=== PATIENT | female | born 1950 | race Caucasian/White ===

== ENCOUNTER 2017-11-05 08:15 | Inpatient (IN) | payer OTHER ==
[2017-10-30 11:07] LABS: PLATELET COUNT 232 10^3/uL (150-400)
--- NOTE | 2017-11-05 06:38 | PDHPUP ---
History & Physical Update H&P update statement: This history and physical update is based on an assessment of the patient which was completed after admission or registration (within 24 hours), but prior to the surgery/procedure. H&P update: H&P reviewed & patient examined, no change in patient's condition since H&P completed
[2017-11-05] MEDS ORDERED: LIDOCAINE 1% 2 ML INJ ID PRN (09:10)
[2017-11-05] MEDS ORDERED: LR 1,000 ML IV ONE (09:10)
[2017-11-05] MEDS ORDERED: GABAPENTIN 300 MG CAP PO ONE (09:10)
[2017-11-05] MEDS ORDERED: ceFAZolin 2 GM/DEXTROSE 100 ML IV ONE (09:10)
[2017-11-05] MEDS ORDERED: ACETAMINOPHEN 500 MG TAB PO ONE (09:10)
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
[2017-11-05] MEDS ORDERED: CHLORHEXIDINE GLUC HIBICLENS 118 ML BTL TP ONE (10:00)
[2017-11-05] MEDS ORDERED: EPINEPHrine 1 MG/ML INJ ONE (10:00)
[2017-11-05] MEDS ORDERED: BUPIVACAINE 0.25% 30 ML SDV ONE (10:00)
[2017-11-05] MEDS ORDERED: BACITRACIN 50,000 UNITS/10 ML SYR IRR ONE ×3 (10:01→13:44)
[2017-11-05] MEDS ORDERED: THROMBIN (BOVINE) 20,000 UNIT VIAL TP ONE (10:02)
[2017-11-05] MEDS ORDERED: MIDAZOLAM 2 MG/2 ML VIAL IVP ONE (10:34)
[2017-11-05] MEDS ORDERED: FUROSEMIDE 20 MG TAB PO PRN (10:39)
[2017-11-05] MEDS ORDERED: FLUTICASONE NASAL 120 SPRAYS/16 GM MDI NS PRN (10:39)
[2017-11-05] MEDS ORDERED: PROPOFOL 200 MG/20 ML VIAL ONE (10:40)
[2017-11-05] MEDS ORDERED: PROPOFOL/EMULSION 500 MG/50 ML BOTTLE IV ONE ×2 (10:40→13:11)
[2017-11-05] MEDS ORDERED: fentaNYL 100 MCG/2 ML INJ ONE ×3 (10:40→15:06)
[2017-11-05] MEDS ORDERED: diphenhydrAMINE 25 MG CAP PO PRN (10:47)
[2017-11-05] MEDS ORDERED: HYDROmorphONE/DILAUDID 1 MG/ML INJ IVP PRN (10:47)
[2017-11-05] MEDS ORDERED: ONDANSETRON 4 MG/2 ML VIAL IVP PRN ×2 (10:47→15:09)
[2017-11-05] MEDS ORDERED: NALOXONE HCL 0.4 MG/ML INJ IVP PRN ×2 (10:47→15:09)
[2017-11-05] MEDS ORDERED: LACTULOSE 20 GM/30 ML UDCUP PO PRN (10:47)
[2017-11-05] MEDS ORDERED: POLYETHYLENE GLYCOL 3350 17 GM PKT PO PRN (10:47)
[2017-11-05] MEDS ORDERED: BISACODYL 10 MG SUPP PR PRN (10:47)
[2017-11-05] MEDS ORDERED: ONDANSETRON DISINTEGRATING 4 MG TAB PO PRN (10:47)
[2017-11-05] MEDS ORDERED: morphINE PCA 30 MG/30 ML PCA IV PRN (10:47)
[2017-11-05] MEDS ORDERED: MAGNESIUM HYDROXIDE 30 ML UDCUP PO PRN (10:47)
[2017-11-05] MEDS ORDERED: NS 1,000 ML IV SCH (11:00)
[2017-11-05] MEDS ORDERED: ONDANSETRON 4 MG/2 ML VIAL ONE (11:28)
[2017-11-05] MEDS ORDERED: DEXAMETHASONE 4 MG/ML VIAL ONE (11:28)
[2017-11-05] MEDS ORDERED: ROCURONIUM 50 MG/5 ML VIAL ONE (13:11)
[2017-11-05] MEDS ORDERED: LIDOCAINE 2% 100 MG/5 ML SYR ONE (13:11)
[2017-11-05] MEDS ORDERED: ceFAZolin 2 GM/DEXTROSE 100 ML IV SCH (14:00)
[2017-11-05] MEDS ORDERED: fentaNYL 100 MCG/2 ML INJ IVP PRN (15:09)
[2017-11-05] MEDS ORDERED: LR 500 ML IV PRN (15:09)
[2017-11-05] MEDS ORDERED: PHENYLEPHRINE HCL 100 MCG/ML SYR IVP PRN (15:09)
[2017-11-05] MEDS ORDERED: DIAZEPAM 5 MG/ML 1 ML SYR IVP PRN (15:09)
[2017-11-05] MEDS ORDERED: HYDROmorphONE/DILAUDID 2 MG/ML INJ ONE (15:25)
--- NOTE | 2017-11-05 15:31 | PDMN ---
Medical Necessity Medical necessity: MCG: S820 lumbar fusion INPT only- TLIF
--- NOTE | 2017-11-05 15:55 | POSTOPPROG ---
Post Op Note Date of Operation: 11/05/17 Surgeon: Zafar Sanders Signal Worker: Beata Anesthesiologist: Buddy Anesthesia: GET(General Endotracheal), Local (Specify) Pre-op Diagnosis: Lumbar stenosis, ASD Post-op Diagnosis: S/P TLIF at L2/3 and L3/4 with tie in hardware to S1 Indication: lumbar stenosis Procedure: as above Inf/Abcess present in the surg proc area at time of surgery?: No Depth: Deep Incisional (Fascial) EBL: 100-500 Total fluids administered: see anesthesia record Complications: none Drains: Darren Nelson
--- NOTE | 2017-11-05 15:57 | SOAPPROG ---
SOAP Progress Note Assessment/Plan: Post Op Visit: S: Awake and alert. NAD. Pt with expected lower back pain O: AFVSS/PERRLA/EOMI no droop CN 2-12 grossly intact +lt touch 5/5 BUE/BLE = CDI A/P: 67 yo female that is s/p TLIF at L2/3 and L3/4 with tie in fusion to S1 -orders in place -call with any questions or concerns -pt seen by Dr Sanders as well -admit to floor -brace when out of bed 11/05/17 15:55 Objective: Vital Signs Temp Pulse Resp BP Pulse Ox 37.0 C 63 16 126/72 H 94 11/05/17 09:24 11/05/17 10:34 11/05/17 10:34 11/05/17 10:34 11/05/17 10:34 Laboratory Results 10/30/17 10:37 10/30/17 10:37 ICD10 Worksheet Patient Problems: Problems Problem Status Onset Arthrodesis status Acute Lumbar radicular pain Acute Lumbar stenosis Acute - ICD10 Problem Qualifiers (1) Lumbar stenosis (2) Lumbar radicular pain (3) Arthrodesis status
[2017-11-05] MEDS ORDERED: HYDROmorphONE/DILAUDID 1 MG/ML INJ ONE ×2 (16:24→17:18)
[2017-11-05] MEDS: HYDROmorphONE/DILAUDID 1 MG/ML INJ IVP PRN ×3 (16:25→17:18)
--- NOTE | 2017-11-05 16:43 | POSTANESTH ---
Post Anesthetic Evaluation Cardiovascular Status: Normal, Stable, Similar to Pre-Op Cond Respiratory Status: Normal, Stable, Similar to Pre-op Cond. Level of Consciousness/Mental Status: Can Participate in Eval, Alert and Oriented Pain Control: Adequate, Prn Tx Ordered Nausea/Vomiting Control: Adequate, Prn Tx Ordered Complications Possibly Related to Anesthesia: None Noted
[2017-11-05] MEDS ORDERED: DIAZEPAM 5 MG/ML 1 ML SYR ONE (16:47)
--- NOTE | 2017-11-05 17:21 | GOP ---
[f rep st] OPERATIVE REPORT DATE OF OPERATION: 11/05/2017 SURGEON: Gris Sanders MD SAFETY DIRECTOR: Carl Cota PA-C. PREOPERATIVE DIAGNOSIS: Adjacent segment disease with spinal stenosis and disk degenerative change a t L2-3, L3-4, prior lumbar fusion L4, L5, S1, spinal stenosis, bilateral lumbosacral radiculopathy, l eft more so than right, chronic pain syndrome. POSTOPERATIVE DIAGNOSIS: Adjacent segment disease with spinal stenosis and disk degenerative change at L2-3, L3-4, prior lumbar fusion L4, L5, S1, spinal stenosis, bilateral lumbosacral radiculopathy, left more so than right, chronic pain syndrome. PROCEDURE PERFORMED: Removal of spinal hardware across a single interspace at L4 (34861), posterior- lateral and intervertebral arthrodesis at L2-3, L3-4 ([id number], 76366), posterior segmental instrumentat ion, L2, L3, L4 (66533), same incision bone graft harvest, microscope, spinal stereotaxy, placement o f biomechanical intervertebral device at L2-3, L3-4. FINDINGS: ESTIMATED BLOOD LOSS: 500 cc. INDICATIONS: The patient is a 67-year-old who struggles looked chronic pain and had increasingly sev ere radiating pain in the left and right legs, left more so than right, and she failed conservative m anagement. MRI demonstrated development of adjacent segment stenosis above her prior fusion. She ap peared to have solid bony union without complication at L4-5, 5-1, but she had developed worsening sp inal stenosis and disk degenerative change, as well as a degenerative scoliotic curve in the spine. She is concave on the right-hand side, but her symptoms are worse on the left and adjacent instrument ation and fusion. She knew there were risks, including risks of continued chronic pain, nerve injury , spinal fluid, pseudarthrosis, possible need for more spine surgery, failure to alleviate symptoms, screw and hardware malposition and malfunction, major vascular injury, and she wanted to proceed desp ite these risks. DESCRIPTION OF PROCEDURE: The patient was taken to the operating room, placed in supine position. G eneral anesthesia was begun. She was flipped prone onto the Darren table. Care was taken to pad al l points of contact. Her back was sterilely prepped and draped in the usual fashion. A localizing x -ray was taken. We opened most of her previous midline incision, sparing about the last inch of the incision itself a nd extended this rostrally in the midline to the spinous process of L1. The subcutaneous tissue was dissected using Bovie cautery down through the subcutaneous tissue and the fascia. A subperiosteal d issection was made down the lamina of L2, L3, L4. The hardware at L4 and L5 were exposed. We removed the cap screws at L4. We then cut the rods below the L4 [place] on each side and then removed a small piece of liseth in the [place] and then removed both p edicle screws at L4. We then prepared the rostral extension of the liseth coming off the L5 screw for a cceptance of an in-line connector. After doing so, we denuded and decorticated the facet joint at L2 -3, 3-4 to create our posterior lateral arthrodesis at those level. We attached the [employer] reference frame, performed an O-arm spin, and using frameless Stealth stereot axy, we placed pedicle screws bilaterally at L2 and L3. We then took 80 mm rods and cut them to size , increased the lordosis in the rods and connected these to liseth extensions coming off the L5 screw an d connected these to the L2 and L3 screw. We distracted right more so than left and reduced the dege nerative scoliotic curve on the right hand side quite nicely. We then removed all the soft tissue fr om the bone at L2, L3, and L4. We harvested the L3 and L4 spinous process for autologous grafting pu rposes. We drilled bilateral L3-4 laminectomy and bilateral L2-3 laminectomy to decompress the theca l sac. We preserved the facet joint on the right at L2-3, 3-4. We removed the facet joints on the l eft to allow access to the foramen itself. The patient had a great tendency to bleed and ooze throughout surgery and the blood loss is not due t o uncontrolled bleeding from actual vessels, but her bone simply kept weeping and oozing despite our attempts to stop it. We continued working through the case. We swept the L4 nerve root medially from the patient's left-hand side, removed the L3-4 disk and cart ilaginous endplates completely. We roughen the subchondral bone to create arthrodesis in the intersp ander, and then, we did likewise at 2, 3, sweeping the L3 nerve root medially from the left side and re moved the disk and the cartilaginous endplates. The L2-3 disk space was collapsed and degenerative. I did not think an Elevate cage would fit so I w ent to a 7 mm [place] cage there, but selected a 7 mm x 28 mm expandable Elevate cage for L3-4. We packed bony autograft and BMP into the disk space. 2 mg were placed into the disk spaces themselves and 2 mg for later use posterior laterally. We inserted the cages under fluoroscopic guidance, expan ded the Elevate cage, and I was happy with the positioning of the device. We then decorticated all t he remaining bone bilaterally posterolaterally to create arthrodesis and then laid down bone autograf t and BMP posterolaterally bilaterally. We placed a subfascial drain and closed the incision in mult iple layers using Vicryl sutures. Steri-Strips were applied to the skin. There were no complication s. We did find the patient had severe spinal stenosis predominantly at L3-4 and we did obtain very good and generous decompression bilaterally at L3-4. There with less severe stenosis at L2-3, but still q uite significant. I was happy with my intraoperative findings and I was happy with the quality of ou r decompression on each side. The patient was ultimately reversed from anesthesia, extubated, and transferred to recovery room in s table condition. There were no complications. COMPLICATIONS: None. INSTRUMENTATION USED: [employer] Solera 5.5 mm system. We used a [place] PEEK cage at L2-3. We use d an expandable Elevate 7 x 28 mm cage at L3-4. We used 6.5 mm screws throughout. /[id number]/MODL
[2017-11-05] MEDS ORDERED: HYDROCODONE/APAP 5/325 TAB ONE (17:31)
[2017-11-05] MEDS: HYDROCODONE/APAP 5/325 TAB PO PRN (17:35)
[2017-11-05] MEDS: ACETAMINOPHEN 500 MG TAB PO SCH ×2 (18:02→22:03)
[2017-11-05] MEDS: GABAPENTIN 300 MG CAP PO SCH ×2 (18:03→22:03)
[2017-11-05] MEDS: oxyCODONE IR 15 MG TAB PO SCH ×3 (18:07→22:04)
[2017-11-05] MEDS: METHOCARBAMOL 750 MG TAB PO SCH ×2 (18:33→22:03)
[2017-11-05] MEDS: morphINE SR 15 MG TAB PO SCH ×2 (18:33→22:04)
[2017-11-05] MEDS: ceFAZolin 2 GM/DEXTROSE 100 ML IV SCH (18:42)
[2017-11-05] MEDS ORDERED: FAMOTIDINE 20 MG TAB PO SCH (21:00)
[2017-11-05] MEDS: MIRTAZAPINE 15 MG TAB PO SCH (22:03)
[2017-11-05] MEDS: FAMOTIDINE 20 MG TAB PO SCH (22:03)
[2017-11-05] MEDS: SENNOSIDES/DOCUSATE SODIUM TAB PO SCH (22:03)
[2017-11-06] MEDS: ceFAZolin 2 GM/DEXTROSE 100 ML IV SCH (03:17)
[2017-11-06 05:47] LABS: PLATELET COUNT 188 10^3/uL (150-400)
[2017-11-06] MEDS: oxyCODONE IR 15 MG TAB PO SCH ×4 (05:53→21:16)
[2017-11-06] MEDS: GABAPENTIN 300 MG CAP PO SCH ×4 (05:53→21:15)
[2017-11-06] MEDS: ACETAMINOPHEN 500 MG TAB PO SCH ×4 (06:01→22:22)
--- NOTE | 2017-11-06 08:00 | NEUSURGPN ---
Date of Surgery: 11/05/17 Post Op Day: 1 Assessment/Plan: Assessment: 67 yo female that is s/p TLIF at L2/3 and L3/4 with tie in fusion to S1 POD #1 Plan: -s/p L spine fusion: Pt states some lower back pain, right hip pain. Legs otherwise feel better -PT/OT ordered -brace when out of bed -orders in place -call with any questions or concerns -post op xrays pending -pt seen by Dr Sanders as well -warning signs given -call with any questions or concerns Subjective: Awake and alert. NAD. Pt with expected lower back pain. Legs feel ok except for some right hip pain. No f/c/n/v/d. No mendez/neck/chest/abd or gu complaints. Objective: AFVSS/PERRLA/EOMI no droop CN 2-12 grossly intact +lt touch 5/5 BUE/BLE = CDI Neuro Check Frequency: per routine Urinary Catheter in Place: No Catheter Insertion Date: 11/05/17 - Physician Discussed Patient with : Tommy Patient Seen by : Tommy Neurosurgery Physical Exam - Vitals, I&O, Labs I and O 11/05/17 11/06/17 11/07/17 05:59 05:59 05:59 Intake Total 4258 Output Total 3330 Balance 928 Weight 74.843 kg Intake: Oral (ml) 275 IV Intake (ml) 3000 IV Infused (ml) 983 Ns 1,000 ml @ 75 mls/hr 983 IV CONT DEX Rx#: [id number] Output: Urine (ml) 2450 Catheter 2450 Estimated Blood Loss (ml) 500 BK Drain Output (ml) 380 #1 Left Posterior Back 380 Darren Nelson Vital Signs Temp Pulse Resp BP Pulse Ox 36.8 C 81 16 119/64 95 11/06/17 07:26 11/06/17 07:26 11/06/17 07:26 11/06/17 07:26 11/06/17 07:26 Laboratory Results 11/06/17 05:22 11/06/17 05:22 ICD10 Worksheet Patient Problems: Problems Problem Status Onset Arthrodesis status Acute Lumbar radicular pain Acute Lumbar stenosis Acute - ICD10 Problem Qualifiers (1) Lumbar stenosis (2) Lumbar radicular pain (3) Arthrodesis status
[2017-11-06] MEDS: morphINE SR 15 MG TAB PO SCH ×3 (08:13→21:16)
[2017-11-06] MEDS: SENNOSIDES/DOCUSATE SODIUM TAB PO SCH ×2 (08:13→21:15)
[2017-11-06] MEDS: METHOCARBAMOL 750 MG TAB PO SCH ×3 (08:13→21:16)
[2017-11-06] MEDS: FAMOTIDINE 20 MG TAB PO SCH ×2 (08:14→21:16)
[2017-11-06] MEDS: CHOLECALCIFEROL VIT D3 1,000 UNITS TAB PO SCH (08:14)
--- NOTE | 2017-11-06 14:19 | ASMTCMCOM ---
CM Note CM Note Notes: Pt s/p TLIF and fusion. Pt resides w adult children and has a sister local. OT/PT rec home. Anticipate pt will d/c when medically stable with family support. No CM d/c needs identified at this time. CM available for changes/needs. Date Signed: 11/06/2017 02:19 PM Electronically Signed By:HINA Reese
[2017-11-06] MEDS: MIRTAZAPINE 15 MG TAB PO SCH (21:16)
[2017-11-07] MEDS: GABAPENTIN 300 MG CAP PO SCH ×4 (05:05→20:08)
[2017-11-07] MEDS: oxyCODONE IR 15 MG TAB PO SCH ×4 (05:05→20:08)
[2017-11-07] MEDS: ACETAMINOPHEN 500 MG TAB PO SCH ×3 (08:06→21:02)
[2017-11-07] MEDS: FAMOTIDINE 20 MG TAB PO SCH ×2 (08:11→20:08)
[2017-11-07] MEDS: METHOCARBAMOL 750 MG TAB PO SCH ×3 (08:11→21:03)
[2017-11-07] MEDS: SENNOSIDES/DOCUSATE SODIUM TAB PO SCH ×2 (08:12→20:08)
[2017-11-07] MEDS: morphINE SR 15 MG TAB PO SCH ×3 (08:12→21:03)
[2017-11-07] MEDS: CHOLECALCIFEROL VIT D3 1,000 UNITS TAB PO SCH (08:12)
--- NOTE | 2017-11-07 09:35 | NEUSURGPN ---
Date of Surgery: 11/05/17 Post Op Day: 2 Assessment/Plan: Assessment: 67 yo female that is s/p TLIF at L2/3 and L3/4 with tie in fusion to S1 POD #2 Plan: -s/p L spine fusion: Pt states some lower back pain, right hip pain. Legs otherwise feel better -PT/OT ordered -brace when out of bed -post op xrays show stable hardware placement -call with any questions or concerns Dr Sanders saw patient as well Subjective: back pain Objective: AxO x3 CN 2-12 grossly intact +lt touch BLE 5/5 BUE/BLE CDI Neuro Check Frequency: per routine Urinary Catheter in Place: No Catheter Insertion Date: 11/05/17 - Physician Discussed Patient with : Tommy Patient Seen by : Tommy Neurosurgery Physical Exam - Vitals, I&O, Labs I and O 11/06/17 11/07/17 11/08/17 05:59 05:59 05:59 Intake Total 4258 1586 Output Total 3330 315 Balance 928 1271 Weight 74.843 kg Intake: Oral (ml) 275 1400 IV Intake (ml) 3000 IV Infused (ml) 983 186 Ns 1,000 ml @ 75 mls/hr 983 186 IV CONT DEX Rx#: [id number] Output: Urine (ml) 2450 250 Catheter 2450 Toilet 250 Estimated Blood Loss (ml) 500 BK Drain Output (ml) 380 65 #1 Left Posterior Back 380 65 Darren Nelson Other: Number of Voids Catheter 1 Toilet 1 Vital Signs Temp Pulse Resp BP Pulse Ox 37.0 C 88 18 129/67 H 89 L 11/07/17 07:40 11/07/17 07:40 11/07/17 07:40 11/07/17 07:40 11/07/17 07:40 Laboratory Results 11/06/17 05:22 11/06/17 05:22 ICD10 Worksheet Patient Problems: Problems Problem Status Onset Arthrodesis status Acute Lumbar radicular pain Acute Lumbar stenosis Acute
[2017-11-07] MEDS: HYDROCODONE/APAP 5/325 TAB PO PRN (10:38)
[2017-11-07] MEDS: oxyCODONE IR 5 MG TAB PO PRN ×3 (16:50→23:59)
[2017-11-07] MEDS: MIRTAZAPINE 15 MG TAB PO SCH (20:08)
[2017-11-08] MEDS: ACETAMINOPHEN 500 MG TAB PO SCH ×3 (05:11→21:02)
[2017-11-08] MEDS: GABAPENTIN 300 MG CAP PO SCH ×4 (05:11→21:02)
[2017-11-08] MEDS: oxyCODONE IR 15 MG TAB PO SCH ×4 (05:11→21:02)
[2017-11-08] MEDS: oxyCODONE IR 5 MG TAB PO PRN ×2 (06:37→12:45)
--- NOTE | 2017-11-08 07:35 | SOAPPROG ---
SOAP Progress Note Assessment/Plan: Assessment: 67 yo female that is s/p TLIF at L2/3 and L3/4 with tie in fusion to S1 POD #3 Plan: -she seems comfortable, says she does not think we are giving her enough pain meds, she is getting TID oxycontin and scheduled oxycodone as well as breakthrough oxycodone and gabapentin/celebrex, would continue as ordered for now, i think she will improve with some PT -PT/OT to eval for home d/c vs. rehab, patient says she does not want to go to rehab -brace when out of bed -post op xrays show intact hardware with good alignment -call with any questions or concerns 11/08/17 07:31 Subjective: c/o pain, but seems comfortable Objective: Vital Signs Temp Pulse Resp BP Pulse Ox 36.8 C 75 14 103/52 L 96 11/08/17 07:26 11/08/17 07:26 11/08/17 07:26 11/08/17 07:26 11/08/17 07:26 Laboratory Results 11/06/17 05:22 11/06/17 05:22 11/07/17 11/08/17 11/09/17 05:59 05:59 05:59 Intake Total 1586 1000 Output Total 315 Balance 1271 1000 AAOx3, full strength and sensation, no drift, dressings c/d/i - Pending Discharge Pending Discharge Within 48 Hours: Yes Pending Discharge Date: 11/10/17 Pending Discharge Time: 11:00 ICD10 Worksheet Patient Problems: Problems Problem Status Onset Arthrodesis status Acute Lumbar radicular pain Acute Lumbar stenosis Acute
[2017-11-08] MEDS: FAMOTIDINE 20 MG TAB PO SCH ×2 (08:46→21:02)
[2017-11-08] MEDS: SENNOSIDES/DOCUSATE SODIUM TAB PO SCH ×2 (08:46→21:02)
[2017-11-08] MEDS: ENOXAPARIN 40 MG/0.4 ML SYR SC SCH (08:46)
[2017-11-08] MEDS: morphINE SR 15 MG TAB PO SCH ×3 (08:46→21:02)
[2017-11-08] MEDS: CHOLECALCIFEROL VIT D3 1,000 UNITS TAB PO SCH (08:46)
[2017-11-08] MEDS: METHOCARBAMOL 750 MG TAB PO SCH ×3 (09:01→21:01)
[2017-11-08] MEDS: MIRTAZAPINE 15 MG TAB PO SCH (21:02)
[2017-11-09] MEDS: oxyCODONE IR 5 MG TAB PO PRN (03:44)
[2017-11-09] MEDS: oxyCODONE IR 15 MG TAB PO SCH ×2 (05:14→12:52)
[2017-11-09] MEDS: GABAPENTIN 300 MG CAP PO SCH ×2 (05:14→12:52)
[2017-11-09] MEDS: ACETAMINOPHEN 500 MG TAB PO SCH (05:14)
[2017-11-09 07:55] VITALS: BP 113/56
[2017-11-09] MEDS: ENOXAPARIN 40 MG/0.4 ML SYR SC SCH (08:08)
[2017-11-09] MEDS: morphINE SR 15 MG TAB PO SCH (08:08)
[2017-11-09] MEDS: METHOCARBAMOL 750 MG TAB PO SCH (08:09)
[2017-11-09] MEDS: CHOLECALCIFEROL VIT D3 1,000 UNITS TAB PO SCH (08:09)
[2017-11-09] MEDS: FAMOTIDINE 20 MG TAB PO SCH (08:09)
[2017-11-09] MEDS: SENNOSIDES/DOCUSATE SODIUM TAB PO SCH (08:09)
--- NOTE | 2017-11-09 10:13 | NEUSURGPN ---
Date of Surgery: 11/05/17 Post Op Day: 4 Assessment/Plan: 67 yo female that is s/p TLIF at L2/3 and L3/4 with tie in fusion to S1 POD #4 Plan: -home later today -brace when out of bed -pain meds prescribed by her pain doc and already in place -post op xrays show intact hardware with good alignment -call with any questions or concerns dw Dr. Sanders Subjective: ready to go home Objective: NAD, VSS AAOx3 EOMI, PEARLA MAEx4, BLE 5/5= SILT incision CDI, dressed. Urinary Catheter in Place: No Catheter Insertion Date: 11/05/17 - Physician Discussed Patient with : Tommy Neurosurgery Physical Exam - Vitals, I&O, Labs I and O 11/08/17 11/09/17 11/10/17 05:59 05:59 05:59 Intake Total 1000 1200 Balance 1000 1200 Intake: Oral (ml) 1000 1200 Other: Intake Quantity Yes Yes Sufficient Number of Voids Toilet 1 1 1 Number of Stools Toilet 1 Vital Signs Temp Pulse Resp BP Pulse Ox 36.4 C 83 16 113/56 L 95 11/09/17 07:53 11/09/17 07:53 11/09/17 07:53 11/09/17 07:53 11/09/17 07:53 Laboratory Results 11/06/17 05:22 11/06/17 05:22 ICD10 Worksheet Patient Problems: Problems Problem Status Onset Arthrodesis status Acute Lumbar radicular pain Acute Lumbar stenosis Acute
--- NOTE | 2017-11-09 12:21 | ASDISCHSUM ---
Discharge Information Plan Status:Home with No Needs Medically Cleared to Leave:11/09/2017 Discharge Date:11/09/2017 CM D/C Disposition:Home, Routine, Self-Care ADT D/C Disposition: Projected Discharge Date:11/09/2017 Transportation at D/C:Family Discharge Delay Reason: Follow-Up Date:11/09/2017 Discharge Slot: Final Diagnosis: Placement Information Patient Contact Information Contact Name:ONEYDA Relationship:Tin Address: Work Phone: City: [facility] Phone: State/[employer] Code: Email: Financial Information Financial Class:HMO and PPO Plans Primary Plan Desc:[employer] Primary Plan Number:[id number] Secondary Plan Desc:MEDICARE INPATIENT Secondary Plan Number:[id number] Assessment Information [facility] CM Progress Note CM Note CM Note Notes: Pt s/p TLIF and fusion. Pt resides w adult children and has a sister local. OT/PT rec home. Anticipate pt will d/c when medically stable with family support. No CM d/c needs identified at this time. CM available for changes/needs. Date Signed: 11/06/2017 02:19 PM Electronically Signed By:HINA Reese Intervention Information
--- NOTE | 2017-11-09 12:23 | ASMTLACE ---
SHERYLE Length of stay for Answers: 4-6 days current admission Acuity / Level of Answers: Yes Care: Did the patient have an inpatient admission? Comorbidities - select Answers: Opioid dependence all that apply / Chronic pain # of Emergency department Answers: 0 visits in the last 6 months Social determinants Answers: Mental health diagnosis (anxiety, depression, pers onality disorders, etc.) Score: 14 Date Signed: 11/09/2017 12:22 PM Electronically Signed By:HINA Orosco
== END 2017-11-09 14:05 | disposition home or self-care (01) | DRG 460 ==
LOC: F3N 08:42
PROVIDERS: ADMIT Neurological Surgery; ATTEND Neurological Surgery
PROC: 4A10X4G Monitoring of Central Nervous Electrical Activity, Intraoperative, External Approach (ICD-10-PCS; principal; 2017-11-05 11:15)
PROC: 0QB00ZZ Excision of Lumbar Vertebra, Open Approach (ICD-10-PCS; principal; 2017-11-05 11:15)
PROC: 0QP004Z Removal of Internal Fixation Device from Lumbar Vertebra, Open Approach (ICD-10-PCS; principal; 2017-11-05 11:15)
PROC: 8E0WXBZ Computer Assisted Procedure of Trunk Region (ICD-10-PCS; principal; 2017-11-05 11:15)
PROC: 0SG10AJ Fusion of 2 or more Lumbar Vertebral Joints with Interbody Fusion Device, Posterior Approach, Anterior Column, Open Approach (ICD-10-PCS; principal; 2017-11-05 11:15)
PROC: 3E0V0GB Introduction of Recombinant Bone Morphogenetic Protein into Bones, Open Approach (ICD-10-PCS; principal; 2017-11-05 11:15)
PROC: BR161ZZ Fluoroscopy of Lumbar Facet Joint(s) using Low Osmolar Contrast (ICD-10-PCS; principal; 2017-11-05 11:15)
PROC: 0ST20ZZ Resection of Lumbar Vertebral Disc, Open Approach (ICD-10-PCS; principal; 2017-11-05 11:15)
DX: M48.061 Spinal stenosis, lumbar region without neurogenic claudication (principal); M51.16 Intervertebral disc disorders with radiculopathy, lumbar region; M79.7 Fibromyalgia; G89.4 Chronic pain syndrome; R12 Heartburn; F41.9 Anxiety disorder, unspecified; Z98.1 Arthrodesis status; Z96.653 Presence of artificial knee joint, bilateral
CPT/HCPCS: 97116-GP; 97161-GP; 97165-GO; 97535-GO; C1713; G8978-GP-CJ; G8979-GP-CI; G8980-GP-CI; G8987-GO-CJ; G8988-GO-CI; J0171; J0690; J1100; J1170; J1650; J2001; J2250; J2270; J2405; J2704; J3010; J3360